=== PATIENT | female | born 1955 | race Caucasian/White ===

== ENCOUNTER 2017-01-21 12:13 | Emergency (ER) | payer OTHER ==
[2017-01-21 12:23] VITALS: RESP 16
--- NOTE | 2017-01-21 13:03 | EDPHY ---
H & P Stated Complaint: Black eye this morning;no known injury;hx subarachnoid bleed Time Seen by Provider: 01/21/17 12:49 HPI/ROS: CHIEF COMPLAINT: Black eye HISTORY OF PRESENT ILLNESS: Patient is a 61-year-old healthy female with hypertension only who comes to the emergency department with her complaining of a black eye on the right. She states that on November 23 of this year she slipped on ice and hit the back of her head. She was taken to [facility] and had a CT scan that revealed a subarachnoid hemorrhage. No basilar skull fracture seen. She had a repeat CT scan the next day and cleared by Neurosurgery to go home. She states that she has had persistent mild headaches since and feels "jostled" when she turns her head too quickly. She has not suffered any further trauma. Yesterday she woke up with a small bruise on her upper eyelid. She did not think much of it but today when she woke up she had raccoon eye on the right. No change in her vision. No eye pain. No recent fevers or illness. No nausea. REVIEW OF SYSTEMS: Constitutional: denies: chills, fever, recent illness, recent injury EENTM: See HPI Respiratory: denies: cough, shortness of breath Cardiac: denies: chest pain, irregular heart rate, lightheadedness, palpitations Gastrointestinal/Abdominal: denies: abdominal pain, diarrhea, nausea, vomiting, blood streaked stools Genitourinary: denies: dysuria, frequency, hematuria, pain Musculoskeletal: denies: joint pain, muscle pain Skin: denies: lesions, rash, jaundice, bruising Neurological: denies: headache, numbness, paresthesia, tingling, dizziness, weakness Hematologic/Lymphatic: denies: blood clots, easy bleeding, easy bruising Immunologic/allergic: denies: HIV/AIDS, transplant EXAM: GENERAL: Well-appearing, well-nourished and in no acute distress. HEAD: Atraumatic, normocephalic. EYES: contusion to upper eyelid and lower aspect of eyebrow. No tenderness. Pupils equal round and reactive to light, extraocular movements intact, sclera anicteric, conjunctiva are normal. No visible retinal hemorrhage ENT: TMs normal, nares patent, oropharynx clear without exudates. Moist mucous membranes. NECK: Normal range of motion, supple without lymphadenopathy or JVD. LUNGS: Breath sounds clear to auscultation bilaterally and equal. No wheezes rales or rhonchi. HEART: Regular rate and rhythm without murmurs, rubs or gallops. ABDOMEN: Soft, nontender, normoactive bowel sounds. No guarding, no rebound. No masses appreciated. BACK: No CVA tenderness, no spinal tenderness, step-offs or deformities EXTREMITIES: Normal range of motion, no pitting or edema. No clubbing or cyanosis. NEUROLOGICAL: Cranial nerves II through XII grossly intact. Normal speech, normal gait. 5/5 strength, normal movement in all extremities, normal sensation PSYCH: Normal mood, normal affect. SKIN: Warm, dry, normal turgor, no visible rashes or lesions. Source: Patient Exam Limitations: No limitations - Personal History Current Tetanus Diphtheria and Acellular Pertussis (TDAP): Yes - Medical/Surgical History Hx Asthma: No Hx Chronic Respiratory Disease: No Hx Diabetes: No Hx Cardiac Disease: No Hx Renal Disease: No Hx Cirrhosis: No Other PMH: Hypertension, CHI 11/23/16 w/subaracnoid hem (nonsurgical) tx'd at [facility] - Family History Significant Family History: Hypertension - Social History Smoking Status: Never smoked Alcohol Use: Sober Drug Use: None Constitutional: Initial Vital Signs Temperature (C) 36.7 C 01/21/17 12:15 Heart Rate 52 L 01/21/17 12:15 Respiratory Rate 16 01/21/17 12:15 Blood Pressure 162/77 H 01/21/17 12:15 O2 Sat (%) 96 01/21/17 12:15 O2 Delivery Mode Room Air Allergies/Adverse Reactions: No Known Allergies Allergy (Unverified 01/21/17 12:23) Home Medications: Medication Instructions Recorded Atenolol [Tenormin 50 mg (*)] 50 mg PO 01/21/17 Triamterene [Dyrenium 50MG (*)] 100 mg PO DAILY 01/21/17 Medical Decision Making - Diagnostics Imaging: Results: CT scan of the head was obtained. The results of the study are negative for intracranial hemorrhage or base of skull fracture or fluid collections. The study was read by Dr. Nikita Houser. I viewed the images myself on the PACS system. ED Course/Re-evaluation: 1:45 p.m. I discussed the case with Dr. Beth Miles. She does not think that this requires any neurosurgical intervention. I discussed the findings with the patient. At this point we do not have a clear cause for why she has a black eye. She denies any known trauma. She and her are relieved and they felt that there "co-pay was worth finding out that there was nothing wrong ". We discussed ice and elevation and follow-up. Also discussed indications for returning. Differential Diagnosis: Partial list of the Differential diagnosis considered include but were not limited to; contusion, raccoon eye, facial fracture, basilar skull fracture and although unlikely based on the history and physical exam, I also considered retrobulbar hematoma, glaucoma, conjunctivitis, blepharitis. I discussed these differential diagnoses and the plan with the patient as well as the usual and expected course. The patient understands that the diagnosis is provisional and that in medicine we are not always correct and that further workup is often warranted. Usual and customary warnings were given. All of the patient's questions were answered. The patient was instructed to return to the emergency department should the symptoms at all worsen or return, otherwise to followup with the physician as we discussed. Departure - Departure Disposition: Home, Routine, Self-Care Clinical Impression: Contusion Qualifiers: Encounter type: initial encounter Contusion area: head Contusion of head detail : eyelid Laterality: right Qualified Code(s): S00.11XA - Contusion of right eyelid and periocular area, initial encounter Condition: Fair Instructions: Contusion in Children (ED) Referrals: Lois Pak MD [Primary Care Provider] - As per Instructions
[2017-01-21 14:14] VITALS: BP 134/76; PULSE 81; TEMP 97.5; O2SAT 95
== END 2017-01-21 14:14 | disposition home or self-care (01) ==
DX: S00.11XA Contusion of right eyelid and periocular area, initial encounter (principal); I10 Essential (primary) hypertension; W00.0XXA Fall on same level due to ice and snow, initial encounter

== ENCOUNTER → 2017-10-20 | Outpatient (CLI) | payer OTHER | LOC: BRMIMAGING 07:39 | PROVIDERS: ATTEND Internal Medicine | DX: Z12.31 Encounter for screening mammogram for malignant neoplasm of breast (principal) | CPT/HCPCS: G0202 ==

== ENCOUNTER 2018-01-28 10:56 | Emergency (ER) | payer OTHER ==
[2018-01-28] MEDS ORDERED: ONDANSETRON 4 MG/2 ML VIAL ONE (12:10)
[2018-01-28] MEDS ORDERED: fentaNYL 100 MCG/2 ML INJ ONE (12:10)
[2018-01-28] MEDS ORDERED: ONDANSETRON 4 MG/2 ML VIAL IVP ONE (12:13)
[2018-01-28] MEDS ORDERED: fentaNYL 100 MCG/2 ML INJ IVP ONE (12:13)
[2018-01-28] MEDS ORDERED: NS 1,000 ML IV ONE (12:17)
--- NOTE | 2018-01-28 12:20 | EDPHY ---
H & P Smoking Status: Never smoked Time Seen by Provider: 01/28/18 11:58 HPI/ROS: CHIEF COMPLAINT: Back pain, vomiting HISTORY OF PRESENT ILLNESS: 62-year-old female presents to the emergency department with abrupt onset of right flank pain that began at 9:00 a.m. This morning. She states that when she was at work a few days ago she had some lower abdominal pressure and discomfort with urination. She was told by a co- worker to drink a lot of cranberry juice. She states that she woke up this morning and noted pain in her right flank which has become more severe. It is constant. She feels as though she has to urinate although she is unable to. She urinated just a small amount early this morning. No fevers or chills. She feels nauseous and vomited 1 time. No chest pain or difficulty breathing. She has some mild lower abdominal discomfort. REVIEW OF SYSTEMS: Constitutional: No fever, no chills. Eyes: No double or blurry vision. ENT: No sore throat. Respiratory: No cough, no shortness of breath. Cardiac: No chest pain. Gastrointestinal: No abdominal pain, vomiting or diarrhea. Genitourinary: As above. Musculoskeletal: Back pain as above. No neck pain. Skin: No rashes. Neurological: No headache. (Yulia Elizabethrina Karla) Past Medical/Surgical History: Traumatic brain injury (Clara,Sachi M) Social History: (Sachi Elizabeth) Physical Exam: General Appearance: Alert, no distress. Afebrile. Mentating normally and answering questions appropriately. at bedside. Eyes: Pupils equal and round. Extraocular motions are all intact. ENT: Mouth: Mucous membranes moist. Respiratory: No wheezing, rhonchi, or rales, lungs are clear to auscultation. Cardiovascular: Regular rate and rhythm. Gastrointestinal: Abdomen is soft. Nontender to palpate. There is no rebound , guarding or masses noted. No CVA tenderness bilaterally. Neurological: Alert and oriented x 3, cranial nerves II through XII grossly intact Skin: Warm and dry, no rashes. Musculoskeletal: Nontender to palpate along the cervical, thoracic or lumbar spine. Neck is supple. Extremities: Full range of motion and no peripheral edema. Psychiatric: Patient is oriented X 3, there is no agitation. (Sachi Elizabeth) Constitutional: Initial Vital Signs Temperature (C) 36.4 C 01/28/18 11:31 Heart Rate 61 01/28/18 11:31 Respiratory Rate 18 01/28/18 11:31 Blood Pressure 171/84 H 01/28/18 11:31 O2 Sat (%) 94 01/28/18 11:31 O2 Delivery Mode Room Air Allergies/Adverse Reactions: No Known Allergies Allergy (Verified 01/28/18 11:31) Home Medications: Medication Instructions Recorded Atenolol [Tenormin 50 mg (*)] 50 mg PO 01/21/17 Triamterene [Dyrenium 50MG (*)] 100 mg PO DAILY 01/21/17 Atorvastatin Calcium 01/28/18 Tamsulosin HCl [Flomax] 0.4 mg PO DAILY #10 cap 01/28/18 Medical Decision Making - Diagnostics Imaging: Discussed imaging studies w/ freight caller Radiologist ED Course/Re-evaluation: 62-year-old female presents emergency department with severe right flank pain. Patient was initially unable to give urine specimen. She does report having symptoms here for urinary tract infection 1 week prior. I was concerned about possible pyelonephritis as well as possible concurrent kidney stone. Creatinine was normal. [place] [id number] imaging of the abdomen pelvis with IV contrast reveals 3 mm distal ureteral stone at [facility]J with moderate hydronephrosis and extravasation of urine. I spoke with the on-call urologist, Dr. Lees, who recommended Toradol, Flomax , and he will see her in follow-up. He felt that if her pain was well controlled she could be discharged. I re-evaluated the [place] patient multiple times. She is feeling much better. She is comfortable being discharged home. She will continue Flomax until the stone has passed did use a urine strainer. She was instructed to return if she developed fever, vomiting, or if she felt worse in any way. (Sachi Elizabeth) The patient was evaluated and managed by the physician assistant professor of art. I have reviewed this chart and I agree with the findings and plan of care as documented , as indicated by my signature. I am the secondary supervising physician. ( Chely Burnett) Differential Diagnosis: Including but not limited to pyelonephritis, kidney stone, urinary tract infection, acute appendicitis (Sachi Elizabeth) - Data Points Laboratory Results: Laboratory Results 01/28/18 12:20 01/28/18 12:20 Medications Given: Discontinued Medications Fentanyl (Sublimaze) 50 mcg IVP EDNOW ONE Stop: 01/28/18 12:14 Last Admin: 01/28/18 12:16 Dose: 50 mcg Hydromorphone HCl (Dilaudid) 0.5 mg IVP EDNOW ONE Stop: 01/28/18 12:53 Last Admin: 01/28/18 12:52 Dose: 0.5 mg Sodium Chloride (Ns) 1,000 mls @ 0 mls/hr IV ONCE ONE; Wide Open PRN Reason: Protocol Stop: 01/28/18 12:18 Last Admin: 01/28/18 12:17 Dose: 1,000 mls Ketorolac Tromethamine (Toradol) 30 mg IVP EDNOW ONE Stop: 01/28/18 15:21 Last Admin: 01/28/18 15:37 Dose: 30 mg Ondansetron HCl (Zofran) 4 mg IVP EDNOW ONE Stop: 01/28/18 12:14 Last Admin: 01/28/18 12:16 Dose: 4 mg Tamsulosin HCl (Flomax) 0.4 mg PO EDNOW ONE Stop: 01/28/18 15:21 Last Admin: 01/28/18 15:37 Dose: 0.4 mg Departure - Departure Disposition: Home, Routine, Self-Care Clinical Impression: Kidney stone on right side Condition: Good Instructions: Kidney Stones (ED), Flank Pain (ED) Additional Instructions: Flomax daily as discussed. Urine strainer as discussed. Follow up with urologist this week to recheck. Return to the emergency department if you develop fever, vomiting, altered mental status, or if you feel worse in any way. Referrals: Lois Pak MD [Primary Care Provider] - As per Instructions Leidy Lees MD [Medical Doctor] - As per Instructions (Urologist on-call) Jarett Taylor MD [Medical Doctor] - As per Instructions (Urologist at [facility]) Prescriptions: Tamsulosin HCl [Flomax] 0.4 mg PO DAILY #10 cap
[2018-01-28 12:27] LABS: PLATELET COUNT 264 10^3/uL (150-400)
[2018-01-28] MEDS ORDERED: HYDROmorphONE/DILAUDID 2 MG/ML INJ ONE (12:50)
[2018-01-28] MEDS ORDERED: HYDROmorphONE/DILAUDID 2 MG/ML INJ IVP ONE (12:52)
[2018-01-28] MEDS ORDERED: IOPAMIDOL (ISOVUE-300) 100 ML BTL ONE (13:17)
[2018-01-28] MEDS ORDERED: TAMSULOSIN HCL 0.4 MG CAP PO ONE (15:20)
[2018-01-28] MEDS ORDERED: KETOROLAC 30 MG/1 ML SDV IVP ONE (15:20)
[2018-01-28 16:43] VITALS: BP 117/70
== END 2018-01-28 16:42 | disposition home or self-care (01) ==
DX: N20.0 Calculus of kidney (principal); E86.9 Volume depletion, unspecified
CPT/HCPCS: 96374; J1170; J1885; J2405; J3010; Q9967

== ENCOUNTER → 2018-11-30 | Outpatient (CLI) | payer OTHER | LOC: BRMIMAGING 07:55 | PROVIDERS: ATTEND Internal Medicine | DX: Z12.31 Encounter for screening mammogram for malignant neoplasm of breast (principal); Z13.820 Encounter for screening for osteoporosis; M85.89 Other specified disorders of bone density and structure, multiple sites ==